=== PATIENT | female | born 1970 | race Caucasian/White ===

== ENCOUNTER 2021-05-07 14:02 | Emergency (ER) | payer OTHER ==
[~2021-05-07] VITALS: Ht 154.9 cm; Wt 64.9 kg
[2021-05-07 14:30] VITALS: BP 100/67
[2021-05-07] MEDS ORDERED: KETOROLAC TROMETHAMINE INJ 30 MG/ML VIAL ONE (15:18)
[2021-05-07] MEDS ORDERED: KETOROLAC TROMETHAMINE INJ 30 MG/ML VIAL IM ONE (15:30)
== END 2021-05-07 17:00 | disposition home or self-care (01) ==
LOC: ER 14:11
DX: K52.9 Noninfective gastroenteritis and colitis, unspecified (principal); Z20.822 Contact with and (suspected) exposure to COVID-19; F17.290 Nicotine dependence, other tobacco product, uncomplicated; Z88.8 Allergy status to other drugs, medicaments and biological substances; Z88.1 Allergy status to other antibiotic agents
CPT/HCPCS: 87426; 96372; 99283; C9803; J1885

== ENCOUNTER 2021-09-22 10:51 | Emergency (ER) | payer OTHER ==
[~2021-09-22] VITALS: Ht 157.5 cm; Wt 63.5 kg
[2021-09-22 11:02] VITALS: BP 98/63
[2021-09-22] MEDS ORDERED: BENZ-13 PO (13:39)
[2021-09-22] MEDS ORDERED: GUAI1TBM19 PO (13:39)
[2021-09-22] MEDS ORDERED: Paxlovid PO (13:39)
--- NOTE | 2021-09-22 13:50 | NUR ---
Patient discharged to home in stable condition. Written and verbal after care instructions given. Patient verbalizes understanding of instruction.
--- NOTE | 2021-09-22 13:51 | NUR ---
Prescription and home isolation instruction for COVID provided to patient and verbalized understanding.
== END 2021-09-22 13:50 | disposition home or self-care (01) ==
LOC: ER 10:53
DX: U07.1 COVID-19 (principal); F17.200 Nicotine dependence, unspecified, uncomplicated; Z88.1 Allergy status to other antibiotic agents
CPT/HCPCS: 71045; 87426; 87804; 99284; C9803

== ENCOUNTER 2022-02-15 15:09 | Emergency (ER) | payer OTHER ==
[~2022-02-15] VITALS: Ht 157.5 cm; Wt 69.4 kg
[~2022-02-15 15:09] MED LIST: BENZ-13 PO; GUAI1TBM19 PO; Paxlovid PO
[2022-02-15 15:25] VITALS: BP 130/77
[2022-02-15] MEDS ORDERED: IBUPROFEN 600 MG TABLET PO ONE (16:30)
[2022-02-15] MEDS ORDERED: IBUPROFEN 600 MG TABLET ONE (16:32)
[2022-02-15] MEDS ORDERED: IBUP-1955 PO (16:41)
== END 2022-02-15 16:46 | disposition home or self-care (01) ==
LOC: ER 15:11
DX: M72.2 Plantar fascial fibromatosis (principal); F32.A Depression, unspecified; F17.200 Nicotine dependence, unspecified, uncomplicated; Z88.8 Allergy status to other drugs, medicaments and biological substances; Z79.899 Other long term (current) drug therapy
CPT/HCPCS: 73630-TC

== ENCOUNTER 2022-04-25 12:47 | Emergency (ER) | payer OTHER ==
[~2022-04-25] VITALS: Ht 162.6 cm; Wt 70.3 kg
[~2022-04-25 12:47] MED LIST changes: +IBUP-1955 PO
--- NOTE | 2022-04-25 13:07 | NUR ---
C/O SORETHROAT AINCE YESTERDAY. DENIES SOB. PT BREATHING EVEN AND UNLABORED. VSS. AWAITING MD ORDERS.
--- NOTE | 2022-04-25 14:43 | NUR ---
COVID AND STREP SWAB TAKEN
[2022-04-25] MEDS ORDERED: GUAI-671 PO ×2 (15:59→16:26)
--- NOTE | 2022-04-25 16:38 | NUR ---
Patient discharged to home in stable condition. Written and verbal after care instructions given. Patient verbalizes understanding of instruction.
[2022-04-25 16:39] VITALS: BP 121/71
== END 2022-04-25 16:39 | disposition home or self-care (01) ==
LOC: ER 12:50
DX: J02.8 Acute pharyngitis due to other specified organisms (principal); B97.89 Other viral agents as the cause of diseases classified elsewhere; Z20.822 Contact with and (suspected) exposure to COVID-19; F17.200 Nicotine dependence, unspecified, uncomplicated; Z88.1 Allergy status to other antibiotic agents; Z88.8 Allergy status to other drugs, medicaments and biological substances
CPT/HCPCS: 99283; 87426; 87880; C9803; 86403-TC

== ENCOUNTER 2022-05-22 23:40 | Emergency (ER) | payer OTHER ==
[~2022-05-22] VITALS: Ht 157.5 cm; Wt 69.4 kg
[~2022-05-22 23:40] MED LIST changes: +GUAI-671 PO
--- NOTE | 2022-05-23 01:07 | NUR ---
BIBS. TO ER BED 10. AAOX4. NOT IN ANY DISTRESS. AMBULATORY. CAME IN FOR L SIDE HEADACHE, LEAFT SIDE BODY PAIN, LOWER BACK PAIN AND URINARY FREQUENCY X 1900. PT REPORTS THAT SHE HAVE THORACIC OUTLET AND CONCERNED THAT IT MIGHT BE CAUSING THE PAIN. AWAITING MD FOR EVMANUEL.
--- NOTE | 2022-05-23 01:07 | NUR ---
Zulma munoz in EDM - 05/23/22 at 0108 by ERIC BIBCorbin. TO ER BED 10. AAOX4. NOT IN ANY DISTRESS. ANTHONY
--- NOTE | 2022-05-23 01:12 | NUR ---
URINE COLLECTED AND SENT TO LAB
--- NOTE | 2022-05-23 01:23 | NUR ---
DR. TAMMIE NELSON AT PT'S BEDSIDE FOR EVAL
[2022-05-23 01:46] LABS: BILIRUBIN,URINE NEGATIVE (NEGATIVE); COLOR,URINE YELLOW (YELLOW); LEUKOCYTE ESTERASE ,URINE NEGATIVE (NEGATIVE); NITRITE, URINE NEGATIVE (NEGATIVE); PROTEIN,URINE NEGATIVE (NEGATIVE); UGLUCOSE NEGATIVE (NEGATIVE); UROBILINOGEN,URINE 0.2 EU/dL (0.2)
--- NOTE | 2022-05-23 02:09 | NUR ---
TERRIE #18G S/L BLOOD COLLECTED AND SENT TO LAB.
--- NOTE | 2022-05-23 02:17 | NUR ---
SPORTS BOOK WRITER AT PT'S BEDSIDE
[2022-05-23 02:26] LABS: BASOPHILS % (AUTO) 0.4 % (0.0-2.0); EOSINOPHILS % (AUTO) 1.5 % (0.0-6.0); HEMATOCRIT 43 % (33-45); HEMOGLOBIN 14.1 g/dL (11.5-14.8); LYMPHOCYTES # (AUTO) 2.9 K/uL (0.8-4.8); MEAN CORPUSCULAR HGB CONC 33 g/dl (31.0-36.0); MEAN CORPUSCULAR VOLUME 89 fL (82-100); MONOCYTES # (AUTO) 0.5 K/uL (0.1-1.30); MONOCYTES % (AUTO) 7.6 % (2.0-12.0); NEUTROPHILS # (AUTO) 3.3 K/uL (1.8-8.9); NEUTROPHILS % (AUTO) 48.5 % (43.0-81.0); PLATELET COUNT (AUTO) 276 K/uL (150-450); WHITE BLOOD COUNT (AUTO) 6.8 K/uL (4.3-11.0)
[2022-05-23 02:34] LABS: CALCIUM, SERUM 8.9 mg/dL (8.5-10.1); CREATININE 0.8 mg/dL (0.6-1.3)
--- NOTE | 2022-05-23 02:57 | NUR ---
US TECH AT PT'S BEDSIDE
--- NOTE | 2022-05-23 04:39 | NUR ---
Patient discharged to home in stable condition. Written and verbal after care instructions given. Patient verbalizes understanding of instruction. IV removed. Catheter intact and site benign. Pressure and 4x4 applied to site. No bleeding noted. PT ambulatory with a steady gait
[2022-05-23 05:19] VITALS: BP 105/67
== END 2022-05-23 04:39 | disposition home or self-care (01) ==
LOC: ER 23:43
DX: G54.0 Brachial plexus disorders (principal); R35.89 Other polyuria; I77.1 Stricture of artery; F32.A Depression, unspecified; Z88.8 Allergy status to other drugs, medicaments and biological substances; F17.200 Nicotine dependence, unspecified, uncomplicated; Z79.899 Other long term (current) drug therapy
CPT/HCPCS: 36415; 71045-TC; 80048-TC; 85025-TC; 85610-TC; 85730-TC; 93930-TC; 93971-TC

== ENCOUNTER 2023-05-08 13:39 | Emergency (ER) | payer OTHER ==
[~2023-05-08] VITALS: Ht 157.5 cm; Wt 64.4 kg
[2023-05-08] MEDS ORDERED: ONDANSETRON HCL/PF 4 MG/2 ML VIAL ONE (14:55)
[2023-05-08] MEDS ORDERED: MORPHINE SULFATE INJ 4 MG/ML DISP.SYRIN ONE (14:56)
[2023-05-08] MEDS: IV NS 0.9% 1,000 ML BAG IV ONE (14:59)
[2023-05-08] MEDS: MORPHINE SULFATE INJ 2 MG/ML DISP.SYRIN IV ONE (15:00)
[2023-05-08] MEDS: ONDANSETRON HCL/PF 4 MG/2 ML VIAL IVP ONE (15:02)
[2023-05-08 15:03] LABS: BASOPHILS % (AUTO) 0.3 % (0.0-2.0); EOSINOPHILS # (AUTO) 0.1 K/uL (0.0-0.7); EOSINOPHILS % (AUTO) 0.8 % (0.0-6.0); HEMATOCRIT 41 % (33-45); HEMOGLOBIN 13.8 g/dL (11.5-14.8); LYMPHOCYTES % (AUTO) 28.4 % (20.0-44.0); MEAN CORPUSCULAR HEMOGLOBIN 30 PG (26.0-33.0); MEAN CORPUSCULAR HGB CONC 33 g/dl (31.0-36.0); MEAN CORPUSCULAR VOLUME 89 fL (82-100); MONOCYTES # (AUTO) 0.4 K/uL (0.1-1.30); MONOCYTES % (AUTO) 5.5 % (2.0-12.0); NEUTROPHILS # (AUTO) 4.5 K/uL (1.8-8.9); PLATELET COUNT (AUTO) 236 K/uL (150-450); RED BLOOD CELL COUNT(AUTO) 4.64 MIL/uL (4.0-5.2); RED CELL DISTRIBUTION WIDTH 14.4 % (11.5-15.0); WHITE BLOOD COUNT (AUTO) 6.9 K/uL (4.3-11.0)
[2023-05-08 15:20] LABS: CALCIUM, SERUM 9.5 mg/dL (8.5-10.1); CARBON DIOXIDE 29 mmol/L (21-32); CHLORIDE 104 mmol/L (98-107); CREATININE 0.5 mg/dL (0.6-1.3); GLUCOSE 102 mg/dL (74-106); POTASSIUM 4.2 mmol/L (3.5-5.1); SODIUM SERUM 140 mmol/L (136-145); UREA NITROGEN, BLOOD 17 mg/dL (7-18)
[2023-05-08 15:29] LABS: ALANINE AMINOTRANSFERASE 17 U/L (12-78); ALBUMIN 3.9 g/dL (3.4-5.0); ALKALINE PHOSPHATASE 85 U/L (46-116); ASPARTATE AMINOTRANSFERASE 13 U/L (15-37); BILIRUBIN,DIRECT 0.1 mg/dL (0.0-0.2); BILIRUBIN,TOTAL 0.4 mg/dL (0.2-1.0); LIPASE 23 U/L (16-77); TOTAL PROTEIN, SERUM 7.4 g/dL (6.4-8.2)
[2023-05-08 15:33] LABS: APPEARANCE,URINE CLEAR (CLEAR); BILIRUBIN,URINE NEGATIVE (NEGATIVE); BLOOD, URINE TRACE Ery/uL (NEGATIVE); COLOR,URINE YELLOW (YELLOW); KETONES,URINE NEGATIVE (NEGATIVE); LEUKOCYTE ESTERASE ,URINE TRACE (NEGATIVE); NITRITE, URINE NEGATIVE (NEGATIVE); PH,URINE 5.5 (5.0-8.0); PROTEIN,URINE NEGATIVE (NEGATIVE); UGLUCOSE NEGATIVE (NEGATIVE); UROBILINOGEN,URINE 0.2 EU/dL (0.2)
[2023-05-08 15:46] LABS: ADD URINE CULTURE NO; BACTERIA,URINE 1+ /HPF (None Seen); MUCUS,URINE Many /LPF (None Seen)
[2023-05-08] MEDS ORDERED: CIPR-262 PO (16:04)
[2023-05-08 16:15] VITALS: BP 123/66; TEMP 98; O2SAT 100
== END 2023-05-08 16:44 | disposition home or self-care (01) ==
LOC: ER 14:34
DX: N39.0 Urinary tract infection, site not specified (principal); R10.11 Right upper quadrant pain; R11.0 Nausea; F32.A Depression, unspecified; F17.200 Nicotine dependence, unspecified, uncomplicated; Z88.8 Allergy status to other drugs, medicaments and biological substances; Z79.899 Other long term (current) drug therapy
CPT/HCPCS: 99285; 74176; 96374; 96375; 93005; 85025; 80048; 83690; 80076; 81001; 36415; 84484; J2270; J2405; J7030